=== PATIENT | male | born 1980 | race Two or more races ===

== ENCOUNTER 2019-09-25 19:15 | Emergency (ER) | payer SELFPAY ==
[~2019-09-25] VITALS: Ht 170.2 cm; Wt 98.0 kg
[2019-09-25 19:16] VITALS: BP 157/100
[2019-09-25] MEDS ORDERED: MORPHINE SULFATE 4 MG/ML, 1ML ONE (19:53)
[2019-09-25] MEDS ORDERED: KETOROLAC 30 MG/1 ML ONE (19:53)
--- NOTE | 2019-09-25 19:58 | NUR ---
PT IN GOWN, ATTACHED TO MONITORS. IV STARTED, LABS DRAWN. PT MEDICATED PER MAR. DENIES ANY WARM BLANKETS. DENIES ANY FURTHER NEEDS OR CONCERNS, CALL LIGHT IN REACH.
[2019-09-25] MEDS ORDERED: SODIUM CHLORIDE FLUSH 10ML SYR IVF ONE (20:00)
[2019-09-25] MEDS ORDERED: MORPHINE SULFATE 4 MG/ML, 1ML IVPush PRN (20:00)
[2019-09-25] MEDS ORDERED: KETOROLAC 30 MG/1 ML IVPush ONE (20:00)
[2019-09-25 20:01] LABS: BASOPHILS # (AUTO) 0.06 x10^3/uL (0-0.1); BASOPHILS % (AUTO) 1 % (0-1); EOSINOPHILS # (AUTO) 0.11 x10^3/uL (0-0.4); EOSINOPHILS % (AUTO) 1 % (1-7); LYMPHOCYTES # (AUTO) 2.52 x10^3/uL (1-3.4); LYMPHOCYTES % (AUTO) 27 % (22-44); MD NO; MEAN CORPUSCULAR HGB CONC 33.9 g/dL (33.2-36.2); MEAN CORPUSCULAR VOLUME 85.5 fL (81-97); MEAN PLATELET VOLUME 8.6 fL (7.4-10.4); MONOCYTES # (AUTO) 0.56 x10^3/uL (0.2-0.8); MONOCYTES % (AUTO) 6 % (2-9); NEUTROPHILS # (AUTO) 6.14 x10^3/uL (1.8-6.8); NEUTROPHILS % (AUTO) 65 % (42-75); PLATELET COUNT 294 x10^3/uL (130-400); RED BLOOD COUNT 5.72 x10^6/uL (4.38-5.82); RED CELL DISTRIBUTION WIDTH 13.2 % (9.4-14.8)
[2019-09-25 20:13] LABS: ALANINE AMINOTRANSFERASE 41 U/L (12-78); ANION GAP 5 mmol/L (5-15); CALCIUM 8.6 mg/dL (8.5-10.1); CHLORIDE 108 mmol/L (98-107); CREATININE 1.17 mg/dL (0.7-1.3)
[2019-09-25 20:15] LABS: ALKALINE PHOSPHATASE 65 U/L (45-117); BILIRUBIN,TOTAL 0.7 mg/dL (0.2-1.0); TOTAL PROTEIN 7.8 g/dL (6.4-8.2)
[2019-09-25] MEDS ORDERED: OMNIPAQUE 350 MG/ML, 150 ML BOTTLE ONE (21:03)
== END 2019-09-25 21:50 | disposition home or self-care (01) ==
LOC: ED 21:39
DX: M54.2 Cervicalgia (principal); M54.6 Pain in thoracic spine; R59.1 Generalized enlarged lymph nodes; R07.9 Chest pain, unspecified; E04.1 Nontoxic single thyroid nodule
CPT/HCPCS: 36415; 70491; 71045; 71260; 80053; 85025; 93005; 96374; 96375; 99285; J1885; J2270; Q9967